=== PATIENT | female | born 1935 | race Caucasian/White ===

== ENCOUNTER 2017-10-11 10:25 | Outpatient (CLI) ==
--- NOTE | 2017-10-11 11:45 | DI ---
Exam: Single x-ray of the pelvis with one x-ray of the right hip and one x-ray of the left hip. Comparison: None available. Reason for exam: Hip pain. FINDINGS: The pelvic ring is intact. There is a moderate to large stool burden seen within the rect osigmoid and rectal vault. No acute fracture or dislocation is seen in either hip. The femoral heads articulate with the acetabula bilaterally. There is diffuse osseous demineralizati on seen throughout the hips and pelvis. Mild joint space narrowing is seen bilaterally. Impression: No acute fracture is seen within the pelvic ring. 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 Moderate stool burden within the rectal vault.
== END 2017-10-11 10:26 | disposition home or self-care (01) ==
LOC: RAD 10:25
PROVIDERS: ATTEND Family Medicine
DX: M25.551 Pain in right hip (principal)